=== PATIENT | female | born 1975 | race Hispanic/Latino ===

== ENCOUNTER 2017-01-16 07:40 | Inpatient (IN) | payer OTHER ==
--- NOTE | 2017-01-12 09:57 | Anesthesia Consultation ---
Anesthesia Consult and Med Hx Date of service: 01/12/17 - Airway Anesthetic Teeth Evaluation: Good ROM Head & Neck: Adequate Mental/Hyoid Distance: Adequate Mallampati Class: Class II Intubation Access Assessment: Probably Good - Pulmonary Exam CTA: Yes - Cardiac Exam Cardiac Exam: RRR - Pre-Operative Health Status ASA Pre-Surgery Classification: ASA3 Proposed Anesthetic Plan: General - Pulmonary Hx Sleep Apnea: Yes - Other Systems Hx Alcohol Use: Yes ([employer] MIXED DRINK) Hx Obesity: Yes (Morbid obesity, BMI 58.5)
[2017-01-12 10:03] LABS: Basophils % (Auto) 0.8 % (0.0-1.8); Eosinophils % (Auto) 1.6 % (0.0-4.3); Hemoglobin 14.5 gm/dl (10.1-14.3); Mean Corpuscular HGB Conc 32 % (30-34); Mean Corpuscular Hemoglobin 26 pg (28-32); Mean Corpuscular Volume 81 fl (79-97); Platelet Count 422 K/mm3 (140-440); Red Blood Count 5.59 M/mm3 (3.65-5.03); Red Cell Distribution Width 14.5 % (13.2-15.2); White Blood Count 7.7 K/mm3 (4.5-11.0)
[2017-01-12 10:16] LABS: Anion Gap 18 mmol/L; Blood Urea Nitrogen 15 mg/dL (7-17); Calcium 9.4 mg/dL (8.4-10.2); Carbon Dioxide 24 mmol/L (22-30); Glucose 87 mg/dL (65-100); Potassium 4.1 mmol/L (3.6-5.0); Sodium 138 mmol/L (137-145)
[2017-01-12 10:18] LABS: Bilirubin,Urine NEG (Negative); Blood,Urine NEG (Negative); Ketones,Urine NEG (Negative); Leukocyte Esterase,Urine NEG (Negative); Mucus,Urine FEW /HPF; Nitrite,Urine NEG (Negative); Protein,Urine <15 mg/dL mg/dL (Negative); Urobilinogen,Urine < 2.0 mg/dL (<2.0)
--- NOTE | 2017-01-13 09:00 | Admit Criteria Form ---
Admission Criteria Documentation: AMBULATORY SURGERY EXCEPTION CRITERIA Ambulatory Surgery Exception Criteria ( Place 'X' for any and all applicable criteria): Surgery or procedure performed on ambulatory basis may require inpatient stay for[A] ANY ONE of the following(1)(2)(3)(4)(5)(6)(7)(8)(9): [X] I. A preoperative situation, condition, or finding that warrants inpatient stay as indicated by ANY ONE of the following: [] a) Inpatient care needed because of severity of a disease or condition rather than the surgery (eg, severe cardiac or respiratory disease, severe infection) (15) (16 ) (17) (18) [] b) Emergent procedure (eg, angioplasty for acute ischemia)(19) [] c) Complex surgical approach or situation as indicated by ANY ONE of the following(3): [] i) Open approach needed instead of usual endoscopic, transcatheter, or other less invasive procedure [] ii) Difficult approach because of previous operation [] iii) Airway monitoring required after open neck procedures(20)(21) [] iv) Large mass requiring unusually extensive dissection [] v) Additional complicating feature requiring inpatient care (eg, drain management)(22(23): [X] d) Major surgery in a pt with high anesthetic risk as indicated by ANY ONE of the following (2)(3)(5)(7)(8): [X] i) ASA risk class III or higher (severe systemic disease impairing function) [D] [] ii) Advanced age (eg, older than 85 years)(14)(24) [] iii) Symptomatic heart failure(25) [] iv) Symptomatic asthma or COPD(8)(21) [] v) Morbid obesity with hemodynamic or respiratory problems(20)( 21)(26)(27) [] vi) Obstructive sleep apnea(20)(21) [] vii) Former premature infants who are younger than 60 weeks [] viii) High risk for severe postoperative abnormalities (eg, severe postoperative hypocalcemia after parathyroidectomy for severe hyperparathyroidism)(27)( 28) [] ix) Unstable angina(25) [] e) Drug-related risk requiring inpatient stay as indicated by ANY ONE of the following(5)(10)(14)(32)(33) [] i) Procedure requires discontinuing drugs or other therapy (eg , antiarrhythmic medication, antiseizure medication), which necessitates inpatient observation or treatment.(18)(31) [] ii) Major surgery and high risk drug use as indicated by ANY ONE of the following: [] 1) Active abuse of cocaine or similar drug [] 2) Monoamine oxidase inhibitor use [] 3) Other drug identified as posing risk [] f) Inadequate outpatient care situation as indicated by ANY ONE of the following(5)(10)(14)(32)(33) [] i) Patient lives remote from medical facility and procedure has urgent complication potential, and temporary nearby residence cannot be arranged [] ii) Patient will have postprocedure incapacitation and inadequate assistance at home, or alternative level of care cannot be arranged. [] iii) Patient will have long general anesthesia or procedure side effect resolution time, and competent person to stay with patient on first postoperative night at home or alternative level of care cannot be arranged. []iv) Other inadequate outpatient situation that cannot be handled by other means [] II. A perioperative event, condition, or finding that warrants inpatient stay as indicated by ANY ONE of the following (1)(2)(3): [] a) Inadequate physiologic recovery: cardiovascular, respiratory, or hemodynamic status not normal or near preoperative baseline(18) [] b) Hemodynamic instability [] c) Patient not alert with near normal or baseline mental status [] d) Temperature not normal or as expected and not appropriate for outpatient treatment of condition [] e) Ambulatory or appropriate activity level status not yet achieved post procedure [E](34)(35)(36) [] f) Operative site not appropriate (eg, unexpected or excessive drainage or bleeding) [] g) Postoperative effects not resolved or adequately managed (eg, significant pain or vomiting not appropriate for outpatient or next level of care)(10)(12) [] h) Complicating features requiring inpatient care as indicated by ANY ONE of the following(37): [] i) Severe complications of procedure (eg, bowel injury, airway compromise, vascular injury,severe hemorrhage) [] ii) Extensive (eg, dissection far beyond usual scope of procedure ) or prolonged (eg, 120 minutes beyond usual) surgery needed requiring inpatient postoperative care [] iii) Conversion to an open or complex procedure that requires inpatient care (eg, open vs laparoscopic cholecystectomy, abdominal vs vaginal hysterectomy)(38) [] iv) Comorbid condition or test result identified during or post procedure that requires inpatient care (7) [] v) Malignant hyperthermia(30) [] vi) Other complicating feature requiring inpatient care(22)(23) Inpatient stay may be needed until ALL of the following are present (1)(2)(3)(4) (5)(6)(10)(14)(33)(40): []a) Physiologic recovery: cardiovascular, respiratory, and hemodynamic status normal or near preoperative baseline []b) Hemodynamic stability []c) Patient alert, with near normal or baseline mental status []d) Temperature appropriate: patient afebrile or temperature appropriate for outpt treatment of condition []e) Activity level appropriate: ambulatory or appropriate activity level post procedure []f) Operative site appropriate as indicated by ALL of the following: []i) Site dry or with expected drainage []ii) Any blood noted is as expected for procedure. []g) Postoperative effects resolved or managed as indicated by ALL of the following: []i) Pain management appropriate for outpatient (or next level of) care(10) []ii) Minimal nausea and vomiting: if present, successfully treated with oral medication(12) []iii) Headache, dizziness, or drowsiness (if present) are mild. []h) Voiding status acceptable as indicated by ANY ONE of the following: []i) Voiding spontaneously []ii) No voiding but instructions given for follow-up in 6 to 8 hours []iii) Urinary catheter in place, and instructions given for follow-up []i) Complicating features requiring inpatient care manageable at a lower level of care(37) []j) Comorbid conditions manageable at a lower level of care(37) The original [employer] content created by [employer] has been revised. The portions of the content which have been revised are identified through the use of italic text or in bold, and [facility] [employer] has neither reviewed nor approved the modified material. All other unmodified content is copyright [employer]. Please see references footnoted in the original [employer] edition 2016 Admission Criteria Met: Yes
[~2017-01-16 07:40] MED LIST: ANCEF/STERILE WATER 2 GM/20 ML 2 GM/20 ML SYRINGE IV NR; DILAUDID ONE; DIPRIVAN 10 MG/ML IV ONE; LACTATED RINGERS 1,000 ML IV SCH; LOVENOX SUB-Q NR; PEPCID IV NR; REGLAN IV NR; TRANSDERM-SCOP TD SCH; VERSED IV NR
[2017-01-16] MEDS ORDERED: ZEMURON IV ONE (08:10)
[2017-01-16] MEDS ORDERED: QUELICIN ONE (08:10)
[2017-01-16] MEDS ORDERED: NEOSTIGMINE ONE (08:10)
[2017-01-16] MEDS ORDERED: XYLOCAINE MPF 2% ONE (08:10)
[2017-01-16] MEDS ORDERED: ROBINUL ONE (08:10)
[2017-01-16] MEDS ORDERED: FLAGYL 500 MG/100 ML 500 MG/100 ML BAG IV ONE (09:02)
[2017-01-16] MEDS ORDERED: DECADRON ONE (09:04)
[2017-01-16] MEDS ORDERED: XYLOCAINE 1% 20 mL INFILTRATI ONE (09:04)
[2017-01-16] MEDS ORDERED: NACL 0.9% IR ONE ×2 (09:04→10:32)
[2017-01-16] MEDS ORDERED: MARCAINE-EPI 0.5%-1:200,000 INFILTRATI ONE (09:04)
[2017-01-16] MEDS ORDERED: ZOFRAN ONE (09:04)
[2017-01-16] MEDS ORDERED: FLAGYL 500 MG/100 ML 500 MG/100 ML BAG IV NR (10:00)
[2017-01-16] MEDS ORDERED: LACTATED RINGERS 1,000 ML ONE (10:02)
[2017-01-16] MEDS ORDERED: NEO SYNEPHRINE/NS Syringe(OR USE) IV ONE (10:13)
[2017-01-16] MEDS ORDERED: ZOFRAN IV PRN (10:53)
--- NOTE | 2017-01-16 10:53 | Anesthesia Day of Surgery ---
Anesthesia Day of Surgery - Day of Surgery Patient Examined: Yes Patient H&P Reviewed: Yes Patient is NPO: Yes
[2017-01-16] MEDS ORDERED: REGLAN IV PRN (11:38)
[2017-01-16] MEDS ORDERED: APRESOLINE IV PRN (11:38)
[2017-01-16] MEDS ORDERED: MYLICON PO PRN (11:38)
[2017-01-16] MEDS ORDERED: NORCO PO PRN (11:38)
[2017-01-16] MEDS ORDERED: MORPHINE IV PRN (11:38)
[2017-01-16] MEDS: DILAUDID IV PRN ×5 (11:46→21:47)
[2017-01-16] MEDS ORDERED: LACTATED RINGERS 1,000 ML IV SCH (12:00)
[2017-01-16] MEDS ORDERED: ANCEF/NS 1 GM/50 ML 1 GM/50 ML BAG IV SCH ×2 (12:00→23:00)
--- NOTE | 2017-01-16 12:03 | Operative Report ---
Operative Report Operative Report: Operative Report DATE OF PROCEDURE: 01/16/17 PREOPERATIVE DIAGNOSES: Morbid obesity, hiatal hernia POSTOPERATIVE DIAGNOSES: 1.same as pre-op SURGEON: Jonatan Mcneil M.D. STORY EDITOR: Pipe Carlson PROCEDURE: 1. laparoscopic sleeve gastrectomy 2. laparoscopic hiatal hernia repair ANESTHESIA: General. ESTIMATED BLOOD LOSS: <5 mL. COMPLICATIONS: None. SPECIMEN: Partial gastrectomy. FINDINGS: 1. hiatal hernia INDICATION FOR PROCEDURE: Patient is a 41-year-old female with a long history of morbid obesity. She has tried multiple efforts at weight loss without [facility]cf[facility] success. She is here today for sleeve gastrectomy. PROCEDURE IN DETAIL: After consent was reviewed, patient was taken back to the operating room, where patient was placed supine on the bed with both arms out. The patient's legs were doubly strapped to the bed. Patient had a foot board in place. Patient had a body warmer placed by anesthesia. Patient was then prepped and draped in normal sterile surgical fashion. After a time-out was called, I made a stab incision in the umbilicus and placed a Veress needle through this incision and insufflated the abdomen to 18 mmHg pressure. I then counted down a handsbreadth below the xiphoid process in the midline and slightly left lateral injected local anesthetic and made about 1.5 cm transverse incision. I then used a 5-mm Optiview trocar to enter into the abdomen. I then placed a 45- degree scope through this port and inspected the abdomen. There was no injury on entry of the abdomen. I then placed two 5-mm ports in the right upper quadrant, one along the anterior axillary line and 1 subxiphoid below the costovertebral angle. I then placed a 15-mm port about a handsbreadth left lateral and inferior to my anterior axillary port. I then placed left upper quadrant port along the anterior axillary line in a similar fashion. I then placed the liver retractor through the subxiphoid port and placed the patient in full reverse Trendelenburg. The right and left crura were skeletonized accentuating a small hiatal hernia. An anterior cruraplasty was performed with a figure-of-8 stitch using surgidac suture to reapproximate the crura. I then identified the pylorus and then counted off 6cm from the pylorus. I then used a LigaSure cutting device to enter into the lesser sac. At that point and then I took down the short gastrics all the way up to the left aurelio. Then I had anesthesia pass down a 36-Gambian bougie along the lesser curvature of the stomach. I made sure everything else was out of the abdomen except the bougie. I then created my gastric sleeve using a 60-mm laparoscopic stapler. The sleeve looked good without any twisting or torsion. I then had anesthesia to remove the bougie. Hemostasis was obtained along the staple line. I then used Tiseel along the entirety of the staple line and some on the liver. I then removed liver grasper and took it off the field. I then removed the stomach through the 15-mm port. I then closed that fascia with a 0-vicryl in a [id number] fashion using a Moisés-Ed. I then desufflated the abdomen and then removed all port sites. I then closed the incisions with 4-0 Monocryl in subcuticular fashion. I then dressed the wounds with Dermabond. Patient tolerated the procedure well and was transferred to recovery room in good and stable condition.
[2017-01-16] MEDS: TORADOL IV SCH ×2 (12:15→23:22)
--- NOTE | 2017-01-16 15:40 | Post Anesthesia Evaluation ---
- Post Anesthesia Evaluation Patient Participated: Yes Airway Patent: Yes Stable Respiratory Function: Yes Nausea/Vomiting: No Temp > 96.8F: Yes Pain Manageable: Yes Adequeate Hydration: Yes Anesthesia Complications: No Block Receding Appropriately: Not Applicable Patient on Ventilator: No
[2017-01-16] MEDS: FLAGYL 500 MG/100 ML 500 MG/100 ML BAG IV SCH (21:46)
[2017-01-16] MEDS: ZOFRAN IV PRN (21:48)
[2017-01-17] MEDS: DILAUDID IV PRN ×2 (04:39→10:54)
[2017-01-17] MEDS: TORADOL IV SCH ×2 (04:51→06:08)
[2017-01-17 05:43] LABS: Phosphorous 3.2 mg/dL (2.5-4.5)
[2017-01-17] MEDS: FLAGYL 500 MG/100 ML 500 MG/100 ML BAG IV SCH (06:11)
--- NOTE | 2017-01-17 07:07 | Discharge Summary ---
Providers - Providers Date of Admission: 01/16/17 07:40 Date of discharge: 01/17/17 Attending physician: JULISSA MORELAND Primary care physician: MARCELO MELÉNDEZ Hospitalization Reason for admission: post op observation Condition: Stable Hospital course: patient admitted overnight for post op observation. Recover appropriately. ready for discharge Disposition: DISCHARGED TO HOME OR SELFCARE Core Measure Documentation - Palliative Care Palliative Care/ Comfort Measures: Not Applicable - Core Measures Any of the following diagnoses?: none Exam - Constitutional Vitals: Temp Pulse Resp BP Pulse Ox 97.9 F 82 20 106/50 95 01/17/17 04:10 01/17/17 04:10 01/17/17 04:10 01/17/17 04:10 01/17/17 04:10 General appearance: Present: no acute distress - EENT Eyes: Present: PERRL ENT: hearing intact, clear oral mucosa - Neck Neck: Present: supple, normal ROM - Respiratory Respiratory effort: normal Respiratory: bilateral: CTA - Cardiovascular Heart Sounds: Present: S1 & S2. Absent: rub, click - Extremities Extremities: pulses symmetrical, No edema - Abdominal General gastrointestinal: Present: soft, non-tender, non-distended, normal bowel sounds, other (wounds c/d/i with dermabond dressing) Female genitourinary: Present: normal - Neurologic Neurologic: moves all extremities Plan Activity: advance as tolerated (no heavy lifting) Diet: other (bariatric stage 1) Special Instructions: no heavy lifting Follow up with: MARCELO MELÉNDEZ MD [Primary Care Provider] - 7 Days
[2017-01-17] MEDS ORDERED: LOVENOX SUB-Q SCH (10:00)
[2017-01-17 10:01] LABS: Basophils % (Auto) 0.7 % (0.0-1.8); Hematocrit 36.6 % (30.3-42.9); Hemoglobin 11.7 gm/dl (10.1-14.3); Mean Corpuscular HGB Conc 32 % (30-34); Mean Corpuscular Volume 81 fl (79-97); Platelet Count 324 K/mm3 (140-440); Red Blood Count 4.53 M/mm3 (3.65-5.03); White Blood Count 11.3 K/mm3 (4.5-11.0)
[2017-01-17 10:03] LABS: Mean Corpuscular Hemoglobin 26 pg (28-32)
[2017-01-17 10:36] LABS: Alanine Aminotransferase 21 units/L (7-56); Albumin 3.2 g/dL (3.9-5); Alkaline Phosphatase 44 units/L (35-129); Anion Gap 21 mmol/L; Bilirubin,Total 0.3 mg/dL (0.1-1.2); Blood Urea Nitrogen 10 mg/dL (7-17); Calcium 8.9 mg/dL (8.4-10.2); Carbon Dioxide 20 mmol/L (22-30); Chloride 102.2 mmol/L (98-107); Glucose 84 mg/dL (65-100); Potassium 3.8 mmol/L (3.6-5.0); Sodium 139 mmol/L (137-145); Total Protein 6.4 g/dL (6.3-8.2)
[2017-01-17] MEDS: ZOFRAN IV PRN (11:05)
[2017-01-17 13:01] VITALS: BP 98/56
== END 2017-01-17 12:40 | disposition home or self-care (01) | DRG 327 ==
LOC: 3A 07:40 → 2B-SURG 12:18
PROVIDERS: ADMIT Surgery; ATTEND Surgery
PROC: 0DB64Z3 Excision of Stomach, Percutaneous Endoscopic Approach, Vertical (ICD-10-PCS; principal; 2017-01-16)
PROC: 0BQR4ZZ (ICD-10-PCS; 2017-01-16)
PROC: 0BQS4ZZ (ICD-10-PCS; 2017-01-16)
DX: K44.9 Diaphragmatic hernia without obstruction or gangrene (principal); Z68.43 Body mass index [BMI] 50.0-59.9, adult; E66.01 Morbid (severe) obesity due to excess calories; G47.30 Sleep apnea, unspecified; Z72.89 Other problems related to lifestyle
CPT/HCPCS: 36415; 80048; 80053; 80061; 81001; 81025; 82962; 83735; 84100; 84443; 84703; 85025; 88307; 88309; 94660; 94760; A4217; C9250; J0330; J0690; J1100; J1170; J1650; J1885; J2250; J2270; J2370; J2405; J2704; J2710; J2765; J7120